=== PATIENT | female | born 1955 | race Caucasian/White ===

== ENCOUNTER 2020-05-08 09:46 | Emergency (ER) | payer BC, MEDICARE ==
[2020-05-08] MEDS ORDERED: fentaNYL 100 MCG/2 ML SDV IVPUSH ONE (10:01)
--- NOTE | 2020-05-08 10:04 | EDM.PDOC ---
ED HPI GENERAL MEDICAL PROBLEM - General Chief Complaint: Lower Extremity Injury/Pain Stated Complaint: ER Time Seen by Provider: 05/08/20 09:52 Source of Information: Reports: Patient, EMS - History of Present Illness INITIAL COMMENTS - FREE TEXT/NARRATIVE: Karuna is a 65 y/o female who is brought to the ER by EMS after she slipped on the ice on her wooden steps and fell onto the concrete. She landed directly on her left knee. SHe was not able to get back up, but then crawled back into the house to call 911. On scene her left knee was in a flexed position, but career consultant were able to get her to straighten it while getting her packaged for transport. She has not eaten this AM, but has taken her Zyrtec. Left Knee Pain Score (Numeric/FACES): 5 - Related Data Allergies Allergy/AdvReac Type Severity Reaction Status Date / Time No Known Allergies Allergy Verified 05/08/20 10:37 Home Meds: Home Meds estradioL [Estradiol] 0.5 mg PO DAILY 05/08/20 [History] Past Medical History - Past Health History Medical/Surgical History: Denies Medical/Surgical History Review of Systems - Review of Systems Review Of Systems: See Below Constitutional: Reports: No Symptoms Eyes: Reports: No Symptoms Ears: Reports: No Symptoms Nose: Reports: No Symptoms Mouth/Throat: Reports: No Symptoms Respiratory: Reports: No Symptoms Cardiovascular: Reports: No Symptoms GI/Abdominal: Reports: No Symptoms Genitourinary: Reports: No Symptoms Musculoskeletal: Reports: Joint Pain (left knee) Skin: Reports: No Symptoms Neurological: Reports: No Symptoms Psychiatric: Reports: No Symptoms ED EXAM, GENERAL - Physical Exam Exam: See Below General Appearance: Alert, WD/WN, No Apparent Distress (Elderyl female.) Ears: Hearing Grossly Normal Nose: Normal Inspection Throat/Mouth: Normal Voice Head: Atraumatic, Normocephalic Respiratory/Chest: No Respiratory Distress, Lungs Clear Cardiovascular: Regular Rate, Rhythm, No Edema GI/Abdominal: Normal Bowel Sounds, Soft, Non-Tender (Female) Exam: Deferred Rectal (Female) Exam: Deferred Back Exam: Normal Inspection Extremities: Normal Capillary Refill, Joint Swelling (Note deformity to left platellar region, platella appears to be in 2 pieces and floating freely on exam, +pain witn any movement to left knee, ROM not tested due to pain, the left knee is red with an abrasion from the direct fall.) Neurological: Alert, Oriented, CN II-XII Intact, Normal Cognition Psychiatric: Normal Affect, Normal Mood Skin Exam: Warm, Dry, Intact, Normal Color Lymphatic: No Adenopathy Course - Vital Signs Text/Narrative:: 09 The patient was seen by the [facility]. Xray was ordered. Fentanyl 50mcg IVP was ordered for pain. 1045 Xray reviewed, note left comminuted platellar fx with 40mm of separation. Discussed with patient who agrees to [facility] as referral. Dr Jaramillo the Ortho institution librarian contacted and transfer requested. 1100 Dr Jaramillo accepted the patient for transport. Left Knee Immobilizer placed for support during transfer. 1120 Morphine 2mg IVP and Zofran 4 mg IVP ordered. Patient remained stable in the ER until leaving with [facility]. Last Recorded V/S: Last Vital Signs Temp 36.3 C 05/08/20 09:46 Pulse 89 05/08/20 09:46 Resp 20 05/08/20 09:46 BP 126/61 05/08/20 09:46 Pulse Ox 97 05/08/20 09:46 - Orders/Labs/Meds Meds: Medications Discontinued Medications Generic Name Dose Route Start Last Admin Trade Name Prashant PRN Reason Stop Dose Admin Fentanyl 50 mcg 05/08/20 10:01 05/08/20 10:11 Sublimaze IVPUSH 05/08/20 10:02 50 mcg ONETIME ONE Administration Morphine Sulfate 2 mg 05/08/20 11:21 Morphine IVPUSH 05/08/20 11:22 ONETIME ONE Ondansetron HCl 4 mg 05/08/20 11:21 Zofran IVPUSH 05/08/20 11:22 ONETIME ONE - Radiology Interpretation Free Text/Narrative:: XR Left Knee=comminuted platellar fx with 40 mm of separation (See final report) Departure - Departure Time of Disposition: 11:25 Disposition: DC/Tfer to Acute Hospital 02 Condition: Good Clinical Impression: Patella fracture Qualifiers: Encounter type: initial encounter Fracture type: closed Fracture morphology: comminuted Fracture alignment: displaced Laterality: left Qualified Code(s): S82.042A - Displaced comminuted fracture of left patella, initial encounter for closed fracture Fall from slipping on ice Qualifiers: Encounter type: initial encounter Qualified Code(s): W00.9XXA - Unspecified fall due to ice and snow, initial encounter - Discharge Information Referrals: Khushi Vo DO [Primary Care Provider] - Forms: ED Department Discharge, Interfacility Transfer [facility] Sepsis Event Note (ED) - Focused Exam Vital Signs: Vital Signs Temp Pulse Resp BP Pulse Ox 05/08/20 09:46 36.3 C 89 20 126/61 97 - Assessment/Plan Assessment:: 1)Left Comminuted Platella Fx with Separation 2)Fall on Ice Plan: -Transfer to [facility] to [facility]
--- NOTE | 2020-05-08 10:47 | CR ---
[id number] RAD/RAD Knee Left 1-2V Exam: RAD Knee Left 1-2V Indication:FELL ON ICE. Comparison: No prior imaging for comparison. Discussion/Impression: Comminuted patella fracture with at least 40 mm of separation at the fracture site seen on the cross table lateral view. No tibia or femur fracture. No tibiofemoral dislocation. 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 Elder Noland MD 05/08/20 1046 Thank you for allowing us to participate in the care of your patient.
[2020-05-08] MEDS ORDERED: Ondansetron 4 MG/2 ML SDV IVPUSH ONE (11:21)
[2020-05-08] MEDS ORDERED: Morphine 2 MG/ML SYRINGE IVPUSH ONE (11:21)
== END 2020-05-08 11:55 | disposition short-term general hospital (02) ==
LOC: VM.ED 09:46
DX: S82.042A Displaced comminuted fracture of left patella, initial encounter for closed fracture (principal); W00.1XXA Fall from stairs and steps due to ice and snow, initial encounter; Y92.009 Unspecified place in unspecified non-institutional (private) residence as the place of occurrence of the external cause
CPT/HCPCS: 73560; 96374; 96375; 99285; J2270; J2405; J3010; 99283

== ENCOUNTER 2020-10-01 08:55 | Day surgery (SDC) | payer MEDICARE, BC ==
[~2020-10-01 08:55] MED LIST: Lactated Ringers 1,000 ML IV SCH
[2020-10-01] MEDS ORDERED: Propofol 200 MG/20 ML SDV ONE ×2 (10:41→11:46)
[2020-10-01] MEDS ORDERED: fentaNYL 100 MCG/2 ML SDV ONE (11:41)
[2020-10-01] MEDS ORDERED: Promethazine Topical Gel 25mg/0.5 ML Syringe TOP ONE (12:42)
[2020-10-01] MEDS ORDERED: Ondansetron 4 MG/2 ML SDV IV PRN (12:54)
--- NOTE | 2020-10-02 10:04 | OR ---
PREOPERATIVE DIAGNOSIS: Positive Cologuard test. POSTOPERATIVE DIAGNOSIS: Positive Cologuard test. PROCEDURE PERFORMED: Colonoscopy with polypectomy. COMPLICATIONS: None. SPECIMENS: None. ESTIMATED BLOOD LOSS: 5 mL. PROCEDURE IN DETAIL: This was done in the endoscopy suite. Sedation was given per Anesthesia. She was placed in left lateral position. First, a rectal exam was done and was normal. Scope was introduced into the rectum and slowly advanced to the rectum, sigmoid, descending, transverse, and ascending colon until the cecum was reached. Upon reaching the cecum, scope was withdrawn looking at all mucosal surfaces on the way out. No mucosal abnormalities, lesions, or polyps were noted except for 1 polyp at approximately 20 cm, which was removed with a hot forceps. The remainder of the exam was normal. FINAL DIAGNOSIS: Polyp at 20 cm. FINAL PATHOLOGY: Pending. BKD: 10/01/2020 12:09:38 MODL: 10/01/2020 18:47:17 /[id number]
== END 2020-10-01 14:20 | disposition home or self-care (01) ==
LOC: VM.SDS 08:55
PROVIDERS: ATTEND Surgery
DX: D12.6 Benign neoplasm of colon, unspecified (principal); E78.5 Hyperlipidemia, unspecified; Z91.09 Other allergy status, other than to drugs and biological substances; Z79.899 Other long term (current) drug therapy; Z87.891 Personal history of nicotine dependence; Z98.890 Other specified postprocedural states
CPT/HCPCS: 00811; J1790; J2704; J3010; J7120

== ENCOUNTER 2021-12-14 20:51 | Emergency (ER) | payer MEDICARE, BC ==
[2021-12-14 22:12] LABS: CHLORIDE,CL 95 mmol/L (98-107); SODIUM,NA 131 mmol/L (136-145)
[2021-12-14 22:14] LABS: ANION GAP 17.9 mmol/L (5-15)
[2021-12-14 22:15] LABS: ESTIMATED GFR 81 mL/min (>=60)
== END 2021-12-14 23:05 ==
LOC: VM.ED 20:51
DX: R40.20 Unspecified coma (principal)
CPT/HCPCS: 36415; 70450; 80053; 81003; 85025; 99285

== ENCOUNTER 2024-03-28 09:22 | Day surgery (SDC) | payer MEDICARE, BC ==
[~2024-03-28 09:22] MED LIST changes: +Brimonidine 0.2% Ophth Soln 5 ML Bottle ONE; +Dexamethasone/Neomycin/Polymyxin B Ophth Oint 3.5 GM Tube ONE; -Lactated Ringers 1,000 ML IV SCH; +Lidocaine 1% 2 ML ONE; +Phenyleprhine/Ketorolac 4 ML Vial ONE; +Povidone-Iodine 5% Sterile Ophth Soln 30 ML Bottle ONE; +Proparacaine 0.5% Ophth Soln 15 ML Bottle ONE; +Sodium Chloride 0.9% 10 ML Syringe FLUSH PRN
[2024-03-28] MEDS: Phenylephrine 2.5% Ophth Soln 2 ML Bot EYERT ONE ×4 (09:28→10:54)
[2024-03-28] MEDS: Tropicamide 1% Ophth Soln 3 ML Bottle EYERT ONE ×2 (09:28→09:44)
[2024-03-28] MEDS: Cyclopentolate 1% Opth Soln 2 ML Bottle EYERT ONE ×2 (09:28→09:45)
[2024-03-28] MEDS: Moxifloxacin 0.5% Ophth Soln 3 ML Bottle EYERT ONE ×2 (09:50→10:52)
[2024-03-28] MEDS ORDERED: Midazolam 1 MG/ML 2 ML SDV ONE (10:05)
[2024-03-28] MEDS: Balanced Salt Solution Ophth Irrig 500 ML Bottle IOCULAR ONE (10:54)
[2024-03-28] MEDS: Dexamethasone/Neomycin/Polymyxin B Ophth Oint 3.5 GM Tube EYERT ONE (10:54)
[2024-03-28] MEDS: Lidocaine 1% PF 2 ML SDV INFILT ONE (10:54)
[2024-03-28] MEDS: Brimonidine 0.2% Ophth Soln 5 ML Bottle EYERT ONE (10:54)
[2024-03-28] MEDS: Phenyleprhine/Ketorolac 4 ML Vial IO ONE ×2 (10:54)
[2024-03-28] MEDS: Chondroitin Sulfate/Hyaluronate Sodium Ophth Inj 0.5 ML Syringe IOCULAR ONE (10:54)
[2024-03-28] MEDS: acetaZOLAMIDE 500 MG Cap.ER PO ONE (11:15)
== END 2024-03-28 11:35 | disposition home or self-care (01) ==
LOC: VM.SDS 09:22
PROVIDERS: ATTEND Ophthalmology
DX: E11.36 Type 2 diabetes mellitus with diabetic cataract (principal); H25.811 Combined forms of age-related cataract, right eye; E78.5 Hyperlipidemia, unspecified; I11.0 Hypertensive heart disease with heart failure; I50.9 Heart failure, unspecified; I25.10 Atherosclerotic heart disease of native coronary artery without angina pectoris; Z79.899 Other long term (current) drug therapy; Z91.09 Other allergy status, other than to drugs and biological substances; Z87.891 Personal history of nicotine dependence; Z86.16 Personal history of COVID-19
CPT/HCPCS: 00142; A9270-GY; J1097; J2250; J3490

== ENCOUNTER 2024-04-25 07:10 | Day surgery (SDC) | payer MEDICARE, BC ==
[~2024-04-25 07:10] MED LIST changes: -Sodium Chloride 0.9% 10 ML Syringe FLUSH PRN
[2024-04-25] MEDS: Tropicamide 1% Ophth Soln 3 ML Bottle EYELF SCH (07:18)
[2024-04-25] MEDS: Cyclopentolate 1% Opth Soln 2 ML Bottle EYELF SCH (07:18)
[2024-04-25] MEDS: Phenylephrine 2.5% Ophth Soln 2 ML Bot EYELF SCH (07:18)
[2024-04-25] MEDS: Moxifloxacin 0.5% Ophth Soln 3 ML Bottle EYELF ONE ×2 (07:40→09:33)
[2024-04-25] MEDS ORDERED: Midazolam 1 MG/ML 2 ML SDV ONE (07:54)
[2024-04-25] MEDS: Balanced Salt Solution Ophth Irrig 500 ML Bottle IOCULAR ONE (09:33)
[2024-04-25] MEDS: Povidone-Iodine 5% Sterile Ophth Soln 30 ML Bottle EYELF ONE (09:34)
[2024-04-25] MEDS: Chondroitin Sulfate/Hyaluronate Sodium Ophth Inj 0.5 ML Syringe IOCULAR ONE (09:34)
[2024-04-25] MEDS: Lidocaine 1% PF 2 ML SDV INFILT ONE (09:34)
[2024-04-25] MEDS: ceFAZolin 500 MG Vial IV ONE (09:34)
[2024-04-25] MEDS: Phenyleprhine/Ketorolac 4 ML Vial IO ONE (09:34)
[2024-04-25] MEDS: Dexamethasone/Neomycin/Polymyxin B Ophth Oint 3.5 GM Tube EYELF ONE (09:34)
[2024-04-25] MEDS: Tetracaine HCl/PF 0.5% 4 ML Bottle EYELF ONE (09:34)
[2024-04-25] MEDS: Brimonidine 0.2% Ophth Soln 5 ML Bottle EYELF ONE (09:35)
[2024-04-25] MEDS: acetaZOLAMIDE 500 MG Cap.ER PO ONE (09:52)
== END 2024-04-25 10:15 | disposition home or self-care (01) ==
LOC: VM.SDS 07:10
PROVIDERS: ATTEND Ophthalmology
DX: H25.813 Combined forms of age-related cataract, bilateral (principal); H02.831 Dermatochalasis of right upper eyelid; H02.834 Dermatochalasis of left upper eyelid; E78.5 Hyperlipidemia, unspecified; Z87.891 Personal history of nicotine dependence
CPT/HCPCS: 00142; A9270-GY; J0690; J1097; J2250; J3490

== ENCOUNTER 2025-01-16 08:20 | Day surgery (SDC) | payer MEDICARE, BC ==
[2025-01-16] MEDS: Lactated Ringers 1,000 ML IV SCH (08:31)
[2025-01-16] MEDS ORDERED: fentaNYL 100 MCG/2 ML SDV ONE (09:08)
[2025-01-16] MEDS ORDERED: Propofol 200 MG/20 ML SDV ONE ×2 (09:08→09:30)
== END 2025-01-16 10:31 | disposition home or self-care (01) ==
LOC: VM.SDS 08:20
PROVIDERS: ATTEND Surgery
DX: Z12.11 Encounter for screening for malignant neoplasm of colon (principal); K57.30 Diverticulosis of large intestine without perforation or abscess without bleeding; E78.5 Hyperlipidemia, unspecified; Z91.09 Other allergy status, other than to drugs and biological substances; Z79.899 Other long term (current) drug therapy; Z87.891 Personal history of nicotine dependence; Z86.0100 Personal history of colon polyps, unspecified
CPT/HCPCS: 00811; G0121; J2704; J3010; J7120